=== PATIENT | male | born 1955 | race Caucasian/White ===

== ENCOUNTER 2024-01-27 06:08 | Day surgery (SDC) | payer BC, SELFPAY ==
--- NOTE | 2024-01-26 09:20 | W.SURGCON ---
Date of service: 01/27/24 Time of Service: 07:25 Assessment and Plan Assessment and plan (1) Hiatal hernia with GERD: Status: Acute Assessment and plan: 68 yo man with ongoing reflux despite ppi therapy in setting of a presumed hiatal hernia. EGD indiciated to decipher size, type and assess the physiologic behavior of his hernia. Overall plan: EGD with biopsies History of Present Illness Narrative: Patient has worsening GERD despite ppi therapy. Has known hiatal hernia. Wishes to know more and figure a definitive management strategy. BMI under 30. No significant lifestyle habits to change aggressively. PFSH All Active Problems Hiatal hernia with GERD (Acute) Hyperlipidemia (Acute) Essential hypertension (Acute) Medical History Depression Anxiety Surgical History Hx of colonoscopy Social History Smoking/Tobacco Use Status: Former Tobacco Use Quit Date: 08/12/84 Smoking risk assessment performed?: Yes Alcohol Intake: never Drug use: Never Substance use type: does not use Housing: house Current gender identity: male Do you feel safe at home: Yes Do you feel safe in your relationship?: Yes Additional Social history: unable to assess privately Exam Narrative Exam Narrative: Gen: Nontoxic, comfortable and interactive NEuro: AxOx3 PSych: GOod mood and affect, good insight and understanding Chest: Nonlabored breathing and no wheezing Heart: Regular
--- NOTE | 2024-01-26 11:26 | ENDO_ITS ---
Date of service: 01/27/24 Time of Service: 07:59 Endoscopy Report PROCEDURE DESCRIPTION: PROCEDURES PERFORMED: 1. EGD with biopsies PREOPERATIVE DIAGNOSIS: GERD with esophagitis, hiatal hernia POSTOPERATIVE DIAGNOSIS: Large (6cm) type III paraesophageal hernia, esophagitis SURGEON: Jillian Valle MD INDICATION FOR PROCEDURE: 68-year-old man has long?standing GERD despite PPI therapy and no significant or obvious risk factors for this. Reportedly has a hiatal hernia. Over the last few months his symptoms have actually become painful on a daily basis. FINDINGS: D2/D3 = normal D1/bulb = normal - no ulcers or inflammation Pylorus = normal Antrum = normal appearance, no ulcers, cold forceps biopsies were taken to rule out H. pylori routinely Body = normal appearance, biopsies taken with cold forceps technique routinely Fundus = normal, no polyps Cardia = normal Hiatus = a large type III paraesophageal hernia is present. It measures about 6 cm from the GE junction down to the hiatal opening. The hiatal defect is quite large. Distal esophagus = diffuse circumferential esophagitis for about 10 cm. I do not think it represents Simons's esophagus though it looks almost like it -in the end I favor just esophagitis visually. There are no strips/tongues present. I took cold forceps biopsies to assess histologically In multiple locations. The esophagus is not noticeably torturous and may be foreshortened. Mid esophagus = becomes distinctly normal roughly 20 cm from the incisors. Proximal esophagus/hypopharynx/vocal cords = normal SURVEILLANCE-INTERVAL/FOLLOW-UP: I recommend surgical repair. He should follow- up to discuss next steps in workup prior to having surgery performed. Specimens: Yes EBL: Minimal COMPLICATIONS: None Procedure in detail: The patient gave written consent and was in agreement with the indications, the potential risks as well as the benefits of the procedure. The patient was taken to the endoscopy suite and laid on their left side. Anesthesia was given which was tolerated well. We performed a timeout and we are in agreement I started the procedure. A well-lubricated endoscope was gently and carefully advanced down the esophagus, into the stomach the scope was and through the pylorus into the duodenum. The scope was then slowly withdrawn with the above-noted findings/interventions. The patient tolerated the procedure well and was then taken to the PACU.
--- NOTE | 2024-01-26 11:27 | W.PM.DSUDISC ---
Date of service: 01/27/24 Time of Service: 08:10 Discharge Plan Disposition Patient Disposition: Home Condition: Good Discharge Details Attending Provider: Joni Valle Primary Care Provider: Hugh Benitez Home Meds and New Rx's Prescriptions: No Action amlodipine 5 mg tablet 5 mg PO QHS atorvastatin 20 mg tablet 20 mg PO DAILY omeprazole 40 mg capsule,delayed release(DR/EC) 40 mg PO DAILY naproxen sodium [Aleve] 220 mg capsule 220 mg PO HS docusate sodium [Colace] 100 mg capsule 100 mg PO DAILY PRN Discharge Instructions Additional Instructions: FINDINGS: You do indeed have a very large hiatal hernia. This is actually called a type III paraesophageal hernia. You can tell the surgeon at [facility] that it measures about 6 cm in size. It does not appear to be twisting(volvulus) on itself nor does it seem loose enough to be twisting on itself. We should have further discussion on management strategy and workup in the office to go over the details and next steps in managing these kinds of hernias. It is my recommendation to have it surgically repaired. Please call and schedule a followup appointment at your convenience if you wish to discuss further. Stand Alone Forms: Anesthesia Discharge Inst., [place] [place] (DSU) Activity:: Activity as Tolerated Diet:: As Tolerated DS: Diagnosis Discharge Diagnosis (1) Hiatal hernia with GERD: Status: Acute
[2024-01-27 06:30] VITALS: BP 161/84; PULSE 65; RESP 18; TEMP 36.5; O2SAT 100
[2024-01-27] MEDS: Lactated Ringers 1,000 ML 80 ML IV (06:45)
--- NOTE | 2024-01-27 07:00 | ANES.PREOP_ITS ---
General Info Date of Service Date Performed: 01/27/24 Height: 5 ft 9 in Weight: 82.5 kg Body Mass Index (BMI): 26.9 Surgical Procedure: Operation Date: 01/27/24 07:35 Proposed Procedure Side Surgeon p Gastroscopy Joni Valle MD Meds Allergies and Home Medications Allergies Allergy/AdvReac Type Severity Reaction Status Date / Time No Known Allergies Allergy Verified 01/27/24 06:23 Home Medication Medication Instructions Recorded amlodipine 5 mg tablet 5 mg PO QHS 12/09/23 atorvastatin 20 mg tablet 20 mg PO DAILY 12/09/23 omeprazole 40 mg capsule,delayed 40 mg PO DAILY 12/09/23 release docusate sodium 100 mg capsule 100 mg PO DAILY PRN 01/24/24 (Colace) naproxen sodium 220 mg capsule 220 mg PO HS 01/24/24 (Aleve) Current Visit Medications: Current Medications Generic Name Dose Route Start Last Admin Trade Name Freq PRN Reason Stop Dose Admin Ringer's Solution 1,000 mls @ 80 mls/hr 01/27/24 06:00 01/27/24 06:45 IV 02/23/24 23:59 80 mls/hr INFUSION BRIAN Administration IV Miscellaneous Supplies 1 each 01/27/24 06:00 Iv Access IV 02/23/24 23:59 DIRECTED BRIAN Sodium Chloride 0 ml 01/27/24 06:00 Normal Saline Flush 10 Ml Syr IV 02/23/24 23:59 PRN PRN Sodium Chloride 0 ml 01/27/24 06:00 Normal Saline 10 Ml Vial IJ 02/23/24 23:59 DIRECTED PRN Sterile Water 0 ml 01/27/24 06:00 Water,Injection,Sterile 10 Ml Vial IJ 02/23/24 23:59 DIRECTED PRN PFSH Active Problems Active Problems: Problem Status Onset Code Hiatal hernia with GERD K44.9, K21.9 Hyperlipidemia E78.5 Essential hypertension I10 Medical History Medical History Depression Anxiety Medical History Comments:: Unknown hx, pt. states when he had a colonoscopy in [place], he was told they had to intubate him, but never knew the reason, and could never acquire any information on it. Pt. denies any hx of sleep apnea or family rx with anesthesia. Surgical History Surgical History Hx of colonoscopy Tobacco Smoking/Tobacco Use Status: Former Tobacco Use Alcohol Alcohol Intake: never Substance Use Substance use: Never Substance use type: does not use Vital Signs and Lab Results Vital Signs Most Recent Vital Signs in EMR: Most Recent Vital Signs Temp Pulse Resp BP Pulse Ox 36.5 C 65 18 161/84 H 100 01/27/24 06:30 01/27/24 06:30 01/27/24 06:30 01/27/24 06:30 01/27/24 06:30 Lab Results Blood Type / Crossmatch: 2 No Data to Display Complete Blood Count: 2 No Data to Display Complete Metabolic Panel: 2 No Data to Display Liver Function Panel: 2 No Data to Display Coagulation Panel: 2 No Data to Display Cardiac Panel: 2 No Data to Display Arterial Blood Gas: 2 No Data to Display Venous Blood Gas: 2 No Data to Display Pancreas Panel: 2 No Data to Display Thyroid Panel: 2 No Data to Display Infectious Disease: 2 No Data to Display Blood Cultures: 2 No Data to Display Toxicology Panel: 2 No Data to Display Anesthesia Assessment and Plan Anesthesia History Personal History: Other Family History: No Family History of Anesthesia Complications Exercise Tolerance Exercise Tolerance: Metabolic Equivalents>4 Pertinent Negatives Pertinent Negatives: No Symptoms of GERD Cardiac & Pulmonary Exam Cardiac Exam: Normal S1/S2 Heart Sounds Pulmonary Exam: Clear Bilateral Breath Sounds Implantable Cardiac Device Does patient have a Pacemaker or an ICD?: No Airway Exam Known Difficult Airway: No Mallampati Class: 2 Mouth Opening: Normal (> 3cm) Thyromental Distance: Greater than 3 cm Neck Range of Motion: Limited ROM (Slight limitation to posterior) Neck Circumference: Normal Teeth Condition: Normal Dentition Tooth Numberin 1. Terminous missing ASA Classification ASA Score: ASA 2 Emergency Case?: No NPO Status NPO Status: NPO Clears >2 hours, Solids >8 hours Anesthesia Plan Resuscitation Status: Full Code Anesthesia Technique: General Anesthesia Airway Planned: Natural Airway (Discussed need for ETT for last colonoscopy (10+ years ago, no records), based on current symptoms and history I believe it is reasonable to start with a natural airway. ) Monitors Used: Standard Monitors
[2024-01-27 07:24] VITALS: BMI 26.9
--- NOTE | 2024-01-27 07:44 | ESO_PTH ---
PATIENT: Colt Chan LOC: [facility] U#:[id number] AGE/SX: 68/M ROOM: RE01/27/[address]: Joni Valle : 1955 BED: DIS: 01/27/2024 SPEC #: [id number] RECD: 01/27/24 12:41 STATUS: TAMIR SEN #: [id number] HILARIA: 01/27/24 07:[address]: Joni Valle DEPT: Surgical Specimen RECD BY: Bianka Alex ENTERED: 01/27/24 12:42 SP TYPE: Nanci MOJICA DR: Hugh Benitez Tissues: 1 - STOMACH BIOPSY 2 - STOMACH BIOPSY 3 - ESOPHAGUS BIOPSY 4 - ESOPHAGUS BIOPSY 5 - ESOPHAGUS BIOPSY Procedures: GROSS AND MICRO LEVEL 4 Comments: [id number]
[2024-01-27 08:00] VITALS: BP 135/74; PULSE 78; RESP 16; TEMP 36; O2SAT 98
--- NOTE | 2024-01-27 08:17 | W.ANESPOSTOP ---
Postoperative Evaluation Date, Time and Location Date Performed: 01/27/24 Time Performed: 08:05 Patient Location: Day Surgery Unit Vital Signs Most Recent Imported Vital Signs: Most Recent Vital Signs Temp Pulse Resp BP Pulse Ox 36 C L 78 16 135/74 98 01/27/24 08:00 01/27/24 08:00 01/27/24 08:00 01/27/24 08:00 01/27/24 08:00 Pain Score Most Recent Pain Score: Most Recent Pain Score Pain Level 0 01/27/24 08:00 Assessment Mental Status: Arousable with meaningful communication Airway and Respiratory Function: Patent airway with normal (patient baseline) respiratory exam Cardiovascular Function: Hemodynamically Stable Hydration Status: Adequately Hydrated Nausea & Vomiting: No Nausea or Vomiting Pain: Pt. Denies Any Pain Peripheral Nerve Block: Patient did not receive a nerve block
[2024-01-27 08:35] VITALS: BP 142/76; PULSE 62; RESP 16; TEMP 36.1; O2SAT 98
== END 2024-01-27 08:50 | disposition home or self-care (01) ==
PROVIDERS: PCP Student in an Organized Health Care Education/Training Program; Visit Provider Student in an Organized Health Care Education/Training Program
PROC: 0DJ68ZZ Inspection of Stomach, Via Natural or Artificial Opening Endoscopic (ICD-10-PCS; CPT 43235; principal; 2024-01-27 07:30)
DX: K44.9 Diaphragmatic hernia without obstruction or gangrene (principal); K21.9 Gastro-esophageal reflux disease without esophagitis; I10 Essential (primary) hypertension; K20.90 Esophagitis, unspecified without bleeding; K31.A0 Gastric intestinal metaplasia, unspecified
CPT/HCPCS: 43239; 00123; 88305; J2001; J2704

== ENCOUNTER → 2024-02-19 00:35 | Outpatient (CLI) | payer BC, SELFPAY ==
--- NOTE | 2024-02-19 07:00 | DI.RAD_ITS ---
Exam(s) RF BARIUM SWALLOW EXAM: RF BARIUM SWALLOW CLINICAL HISTORY: assess hernia physiology and shape,PARAESOPHAGEAL HERNIA,K44.9,K21.9 TECHNIQUE: 2D and realtime digital imaging was performed. CONTRAST MATERIAL: Thick and thin barium and barium tablet were administered. COMPARISON: No exams were available for comparison FINDINGS: The PA and lateral chest films show normal heart size and clear lung griffin. The lateral cd storage and materials make up helper view of the neck is unremarkable shows degenerative changes in the cervical spine. Esophagus: The patient swallowed barium without difficulty. Noevidence for mucosal erosions. Nofol d thickening. No mass is visible. Nostricture. Barium tablet passed into the stomach without delay. Motility: There is a normal primary stripping wave. No tertiary contractions were noted. There is a moderate-sized hiatal hernia, with the fundus of the stomach projecting above the diaphrag m.. Nogastroesophageal reflux was observed during the exam. Normal gastric emptying. The duodenum appea rs normal. IMPRESSION: Moderate-sized hiatal hernia. RADIATION DOSE DELIVERED: candis Freeman=12.6 mGy
[2024-02-19] MEDS: Barium Sulfate 98% W/W 140 ML BTL PO (09:45)
[2024-02-19] MEDS: Barium Sulfate 60% W/V 355 ML BTL PO (09:46)
[2024-02-19] MEDS: Barium Sulfate 700 MG TAB PO (09:47)
[2024-02-19] MEDS: Simethicone/Sod Bicarb/Cit Ac, 4 gram PACKET 1 PACKET PO (09:47)
== END ==
PROVIDERS: PCP Student in an Organized Health Care Education/Training Program; Visit Provider Student in an Organized Health Care Education/Training Program
DX: K44.9 Diaphragmatic hernia without obstruction or gangrene (principal); K21.9 Gastro-esophageal reflux disease without esophagitis
CPT/HCPCS: 74221; J3490

== ENCOUNTER → 2024-02-27 01:49 | Outpatient (CLI) | payer BC, SELFPAY ==
[2024-02-27] MEDS: Barium Sulfate 2% W/V-Berry Smoothie 450 ML BTL PO (07:21)
[2024-02-27 07:35] LABS: CREATININE 0.9 mg/dL (0.70-1.30); Estimated GFR 93.03 (mL/min/1.73m2)
[2024-02-27] MEDS: Omnipaque 350 MG/ML 100 ML BTL IJ (08:42)
[2024-02-27] MEDS: Normal Saline - Diluent 50 ML VIAL IJ (08:43)
--- NOTE | 2024-02-27 08:45 | DI.CT_ITS ---
Exam(s) CT CHEST/ABD W EXAM: CT CHEST/ABD W CLINICAL HISTORY: preop,paraesophageal hernia with ge reflux,k44.9. TECHNIQUE: Imaging Protocol: Axial computed tomography images with coronal and sagittal reformatted images were created and reviewed CONTRAST MATERIAL: Intravenous: Omnipaque 350 Contrast volume:100 ml Oral: Yes. Oral contrast was also administered for bowel opacification. COMPARISON: CR,RF RF BARIUM SWALLOW from 02/19/2024 FINDINGS: CHEST: LUNGS: No infiltrates, concerning pulmonary nodules, nor pleural effusions. No significant focal fin dings in the trachea and mainstem bronchi and there is no bronchiectasis.. MEDIASTINUM: There is no hilar nor mediastinal adenopathy. Visualized thyroid unremarkable.Prominent hiatal hernia evident which appears para esophageal. The entire gastric fundus is in the chest. Her emerson size is 7 cm wide by 6 cm AP by 9 cm craniocaudal. The upper esophagus is not dilated. CARDIAC: Heart size is normal. There is no pericardial effusion.Caliber of the thoracic aorta is wit hin normal limits. No evidence of dissection OSSEOUS: No significant osseous lesions.. ABDOMEN: No evidence of small-bowel obstruction. The oral contrast has progressed into the large bowel by the time of image acquisition. LIVER: There are no focal hepatic lesions nor dilatation of intrahepatic ducts. GALLBLADDER/BILIARY: No obvious gallbladder pathology. CBD is not dilated. PANCREAS: No evidence of pancreatic mass nor dilatation of the pancreatic duct. SPLEEN: Spleen is not enlarged. There are no intrasplenic lesions. Splenic and portal veins are barr nt. ADRENALS: There are no significant adrenal masses. KIDNEYS: No calculi nor hydronephrosis. No solid renal masses. No cysts evident. ABDOMINAL AORTA: Calcified but not enlarged. LYMPH NODES: There is no retroperitoneal nor paraaortic adenopathy. ABDOMINAL WALL: No evidence of significant anterior abdominal wall hernia in the field of view. GI: There is no evidence of bowel obstruction within the field of view. OSSEOUS: No significant osseous lesions. No fractures. IMPRESSION: 1. Prominent hiatal hernia measuring approximately 7 x 6 x 9 cm. 2. No significant focal pulmonary findings nor pleural effusions. 3. Other findings as above. 4. RADIATION DOSE DELIVERED: Total DLP DATA REPOSITORY: All CT scans at this facility are submitted to the National Radiology Data Registry (NRDR) Dose Index Registry (DIR) with the [employer] (ACR). RADIATION OPTIMIZATION: All CT scans at this facility use at least one of these dose optimization te chniques: automated exposure control; mA and/or kV adjustment per patient size (includes targeted exa ms where dose is matched to clinical indication); or iterative reconstruction.
== END ==
PROVIDERS: PCP Student in an Organized Health Care Education/Training Program; Visit Provider Student in an Organized Health Care Education/Training Program
DX: K44.9 Diaphragmatic hernia without obstruction or gangrene (principal); K21.9 Gastro-esophageal reflux disease without esophagitis; Z01.812 Encounter for preprocedural laboratory examination
CPT/HCPCS: 71260; 74160; 82565; J3490

== ENCOUNTER 2024-05-05 13:22 | Observation (INO) | payer BC, SELFPAY ==
[2024-05-05] VITALS (49 sets, daily range): BP systolic 110–166; BP diastolic 52–109; PULSE 55–82; RESP 11–33; TEMP 36.1–36.8; O2SAT 94–100; BMI 27.7
[2024-05-05] MEDS: Acetaminophen 500 MG TAB 1000 MG PO (06:45)
[2024-05-05] MEDS: Gabapentin 300 MG CAP PO (06:45)
[2024-05-05] MEDS: Celecoxib 200 MG CAP PO (06:45)
[2024-05-05] MEDS: Heparin 5,000 UNITS/ML VIAL 5000 UNITS SC ×2 (06:48→18:00)
--- NOTE | 2024-05-05 07:07 | W.ANESPRE ---
General Info Date of Service Date Performed: 05/05/24 Height: 5 ft 6 in Weight: 77.9 kg Body Mass Index (BMI): 27.7 Surgical Procedure: Operation Date: 05/05/24 07:30 Proposed Procedure Side Surgeon p Hernia Paraesophageal Laparoscopic Joni Valle MD Actual Procedure Side Surgeon p Hernia Paraesophageal Laparoscopic Joni Valle MD Pre-Op Diagnosis Post-Op Diagnosis hiatal hernia with GERD Meds Allergies and Home Medications Allergies Allergy/AdvReac Type Severity Reaction Status Date / Time No Known Allergies Allergy Verified 05/05/24 06:50 Home Medication ?Medication ?Instructions ?Recorded amlodipine 5 mg tablet 5 mg PO QHS 12/09/23 atorvastatin 20 mg tablet 20 mg PO DAILY 12/09/23 omeprazole 40 mg capsule,delayed 40 mg PO DAILY 12/09/23 release docusate sodium 100 mg capsule 100 mg PO DAILY PRN 01/24/24 (Colace) naproxen sodium 220 mg capsule 220 mg PO HS 01/24/24 (Aleve) [id number] 250 1 tab PO ONCE 04/08/24 mg-250 mg-65 mg tablet (Excedrin Extra Strength) Current Visit Medications: Current Medications Generic Name Dose Route Start Last Admin Trade Name Freq PRN Reason Stop Dose Admin Droperidol 0.625 mg 05/05/24 07:04 Droperidol 5 Mg/2 Ml Vial IVP 06/04/24 07:03 DIRECTED PRN Nausea Ephedrine Sulfate 0 mg 05/05/24 07:04 Ephedrine 25 Mg/5 Ml Syringe IVP 06/04/24 07:03 DIRECTED PRN Fentanyl 0 mcg 05/05/24 07:04 Fentanyl 100 Mcg/2 Ml Vial IVP 06/04/24 07:03 DIRECTED PRN Heparin Sodium (Porcine) 5,000 units 05/05/24 06:00 05/05/24 06:48 Heparin 5,000 Units/Ml Vial SC 05/05/24 23:59 5,000 units PREOP BRIAN Administration Hydromorphone HCl 0 mg 05/05/24 07:04 Hydromorphone 2 Mg/Ml Syr IVP 06/04/24 07:03 DIRECTED PRN Ringer's Solution 1,000 mls @ 80 mls/hr 05/05/24 06:00 IV 06/03/24 23:59 INFUSION BRIAN IV Miscellaneous Supplies 1 each 05/05/24 06:00 Iv Access IV 06/03/24 23:59 DIRECTED BRIAN Naloxone HCl 0 mg 05/05/24 07:04 Naloxone 0.4 Mg/Ml Vial IVP 06/04/24 07:03 PRN PRN Sodium Chloride 0 ml 05/05/24 06:00 Normal Saline Flush 10 Ml Syr IV 06/03/24 23:59 PRN PRN Sodium Chloride 0 ml 05/05/24 06:00 Normal Saline 10 Ml Vial IJ 06/03/24 23:59 DIRECTED PRN Sterile Water 0 ml 05/05/24 06:00 Water,Injection,Sterile 10 Ml Vial IJ 06/03/24 23:59 DIRECTED PRN PFSH Active Problems Active Problems: Problem Status Onset Code Paraesophageal hernia with gastroesophageal reflux Acute K44.9, K21.9 Hiatal hernia with GERD Acute K44.9, K21.9 Hyperlipidemia Acute E78.5 Essential hypertension Acute I10 Medical History Medical History Collapsed lung Depression Anxiety Medical History Comments:: Unknown hx, pt. states when he had a colonoscopy in [place], he was told they had to intubate him, but never knew the reason, and could never acquire any information on it. Pt. denies any hx of sleep apnea or family rx with anesthesia. Surgical History Surgical History History of esophagogastroduodenoscopy (~01/2024) Hx of colonoscopy Tobacco Smoking/Tobacco Use Status: Former Tobacco Use Alcohol Alcohol Intake: never Substance Use Substance use: Never Substance use type: does not use Vital Signs and Lab Results Vital Signs Most Recent Vital Signs in EMR: Most Recent Vital Signs Temp Pulse Resp BP Pulse Ox 36.2 C L 62 16 166/74 H 98 05/05/24 06:19 05/05/24 06:19 05/05/24 06:19 05/05/24 06:19 05/05/24 06:19 Lab Results Blood Type / Crossmatch: No Data to Display Complete Blood Count: No Data to Display Complete Metabolic Panel: No Data to Display Liver Function Panel: No Data to Display Coagulation Panel: No Data to Display Cardiac Panel: No Data to Display Arterial Blood Gas: No Data to Display Venous Blood Gas: No Data to Display Pancreas Panel: No Data to Display Thyroid Panel: No Data to Display Infectious Disease: No Data to Display Blood Cultures: No Data to Display Toxicology Panel: No Data to Display Anesthesia Assessment and Plan Anesthesia History Personal History: Delayed Emergence and Other Family History: No Family History of Anesthesia Complications Exercise Tolerance Exercise Tolerance: Metabolic Equivalents>4 Pertinent Negatives Pertinent Negatives: No Symptoms of GERD (Hx of GERD, denies active symptoms, reports well control with diet and occasional PRN omeprazole ), No Major Cardiovascular Symptoms or Complaints, No Major Pulmonary Symptoms or Complaints and No History of CVA/TIA Cardiac & Pulmonary Exam Cardiac Exam: Normal S1/S2 Heart Sounds Pulmonary Exam: Clear Bilateral Breath Sounds Implantable Cardiac Device Does patient have a Pacemaker or an ICD?: No Airway Exam Known Difficult Airway: No Mallampati Class: 2 Mouth Opening: Normal (> 3cm) Thyromental Distance: Greater than 3 cm Neck Range of Motion: Limited ROM (Slight limitation to posterior) Neck Circumference: Normal Teeth Condition: Normal Dentition ASA Classification ASA Score: ASA 2 Emergency Case?: No NPO Status NPO Status: NPO Clears >2 hours, Solids >8 hours Anesthesia Plan Resuscitation Status: Full Code Anesthesia Technique: General Anesthesia Airway Planned: Endotracheal Tube Pain Management: Surgeon and patient request nerve block Monitors Used: Standard Monitors and SedLine
[2024-05-05] MEDS: Lactated Ringers 1,000 ML 80 ML IV ×2 (07:21→13:10)
--- NOTE | 2024-05-05 08:48 | W.ANESNERVE ---
Nerve Block Single Injection Procedure Date and Time Date Performed: 05/05/24 Procedure Start: 07:13 Location Where Procedure Performed Procedure Location: Day Surgery Unit Reason Performed: Postoperative Analgesia Requesting Provider: Joni Valle Timeout Performed Timeout Performed: Yes Monitoring Used ECG, Blood Pressure, SpO2 and See EMR for corresponding vital signs Sterility Sterility: Hand Hygiene, Surgical Cap, Surgical Mask, Sterile Gloves and Chlorhexidine Sedation Given During Procedure Sedation Given (Indicate Dose Given): Versed IV Dose:: 2mg Patient Mental Status Patient Mental Status: Sedate with meaningful communication Nerve Block 1st Nerve Block: Laterality: Bilateral Block Type: Erector Spinae (Upper) Ultrasound Image Saved?: Yes Needle / Catheter Used: 100mm SonoPlex II Local Anesthetic Bolus (Indicate Dose Given): Lidocaine used for local infiltration of skin, Injected in 3-5ml increments after negative blood aspiration, Exparel Dose:: 5ml and Bupivacaine 0.25% with Epinephrine (1:200,000) Dose:: 25ml Additives (Indicate Dose Given): None Ultrasound: Sterile probe cover and gel used Nerve Stimulator: Not Used Paresthesia: None Procedure Tolerated: No Complications and Patient tolerated well Procedure Outcome: Successful Performed By: Julius Seay Supervised By: Amador Saavedra
--- NOTE | 2024-05-05 12:03 | ROE_ITS ---
Date of service: 05/05/24 Time of Service: 12:03 Operative Note Operative Note Refer to Anesthesia Record Procedure Description: Procedure Description: Procedures: 1. Laparoscopic paraesophageal hernia repair with Phasix ST mesh 2. Laparoscopic Yannick fundoplication Preoperative Diagnosis: symptomatic type 3 paraesophageal hernia Postoperative Diagnosis: Same Surgeon: Jillian Valle Assist: Dari Anesthesia: General Anesthesiologist: Chance Indication: Large, symptomatic type III paraesophageal hernia. Normal manometry. Findings: A large-size type III paraesophageal hernia was present and reduced. Primary suture repair performed at the екатерина anterior and posterior and then buttressed with a Phasix ST mesh. A 360 degree Yannick fundoplication was performed over a 56 welsh bougie. Complications: None Estimated Blood Loss: Minimal Specimens removed: None Grafts or implants: Phasix ST mesh Procedure in detail: Written consent was obtained from the patient who was in agreement the risks, the benefits and indications for the procedure. The patient was taken to the operating suite and laid supine on the operating table with arms outstretched. General anesthesia was administered which was tolerated very well. Anesthesia had performed an ultrasound?guided local block(see their procedure note for details) We placed the patient in lithotomy. Next we prepped and draped the abdomen in sterile fashion. A timeout was performed. When we were all in agreement we began the procedure. Just to the left of the bellybutton a small stab incision was made and a 5 mm Optiview trocar was used to enter into the abdomen under direct visualization. Four-quadrant diagnostic laparoscopy was performed and was grossly within normal limits. The liver was inspected and did not appear cirrhotic. 3 more trochars were placed across the abdomen under visualization. The 12 mm working port was placed in the mid clavicular line on the left side. A Ashvin liver retractor was used to retract the liver anteriorly and was placed in the epigastric location through a 5 mm defect. The patient was placed in steep reverse Trendelenburg and we had good visualization of the hiatus. The entire fundus was herniated within the chest. This was reduced laparoscopically. I identified the left екатерина of the diaphragm and incised the peritoneum overlying it from posterior circumferentially up to the anterior portion of the esophagus. The anterior(left) vagus nerve was visualized against the esophagus. I then turned my attention to opening pars flaccida and took down the attachments leading up to the right екатерина which was easily identified and again peritoneum was opened over top of this. I then ensured that all the peritoneum edges on the posterior aspect were divided(no hernia sac remaining). The posterio r(right) vagus nerve was also easily identified and was bluntly and gently swept away from the dissection planes by keeping it close to the esophagus. I was able to circumferentially clear the esophagus at the level of the hiatus and passed a [place] drain around this for retraction leading into the mediastinal dissection. Next, a combination of blunt dissection as well as dissection with the LigaSure was performed to mobilize the esophagus within the mediastinum taking care to dissect very high into the mediastinum to facilitate excellent mobilization. This was achieved and we had complete mobilization without any significant difficulty. Satisfied with circumferential dissection within the mediastinum and the mobilization of the esophagus and that there was no tension, I verified that I had about 3 cm of esophagus intra-abdominal. Further, this stayed intra- abdominal without any retraction or tension. At this point I closed the left and right crura primarily, posteriorly using an Endo Stitch with interrupted sutures. This facilitated a nice closure that did not have any tension and I ensured that it was not too tight around the esophagus. I also stitched it anteriorly. Next I fixated the Phasix ST mesh (that I had pre-cut to size on the back table) in place with a single suture on each side of it through the left and right crura individually and a stitch through the crural closure in the center. At this point anesthesia advanced a 56 Nepali bougie gently down the esophagus while we watched with the laparoscope. The crural closure was not too tight. I divided some of the short gastrics in order to facilitate getting the fundus behind the esophagus/bougie loosely and without tension. Following this I was able to grab the fundus of the stomach and bring it around behind the esophagus without any tension or difficulty. I had excellent mobilization and I was able to get the fundus completely wrapped around the esophagus and GE junction over top of the 56 Nepali bougie and no tension was noted. I then used 2-0 silk sutures and sutured about 2cm of fundus to fundus, thus completing the 360 degree wrap around the esophagus. I ensured that it was l oose and floppy and not tight. I placed the superior two stitches partial- thickness through the esophagus to prevent the wrap from moving up or down at the GE junction. Hemostasis was excellent, the wrap lay very nicely and had no tension anywhere. All the needles were removed. The Ashvin retractor was removed. Hemostasis was again verified to be excellent. The 12 mm port site was closed with 0 Vicryl using a Ernesto Sarah. All trochars were removed under visualization and the pneumoperitoneum was evacuated. I closed the skin with running Monocryl and placed skin glue over top of the wounds. The sponge, instrument and sharps counts were correct x3 at the end of the procedure. The patient tolerated the procedure well and was taken to the PACU in hemodynamically stable condition.
[2024-05-05] MEDS: ACETAMINOPHEN 1,000 MG/100 ML BTL 400 MG IVPB ×2 (13:29→20:19)
[2024-05-05] MEDS: Lactated Ringers 1,000 ML 75 ML IV (14:38)
--- NOTE | 2024-05-05 15:05 | ANES.POST_ITS ---
Postoperative Evaluation Date, Time and Location Date Performed: 05/05/24 Time Performed: 14:00 Patient Location: PACU Vital Signs Most Recent Imported Vital Signs: Most Recent Vital Signs Temp Pulse Resp BP Pulse Ox 36.3 C L 72 18 156/92 H 99 05/05/24 14:51 05/05/24 14:51 05/05/24 14:51 05/05/24 14:51 05/05/24 14:51 Pain Score Most Recent Pain Score: Most Recent Pain Score Pain Level [Left Neck] 8 05/05/24 14:51 Pain Level [Left Shoulder] 8 05/05/24 14:51 Pain Level [Abdomen] 5 05/05/24 14:51 Pain Level 7 05/05/24 14:51 Assessment Mental Status: Arousable with meaningful communication Airway and Respiratory Function: Patent airway with normal (patient baseline) respiratory exam Cardiovascular Function: Hemodynamically Stable Hydration Status: Adequately Hydrated Nausea & Vomiting: No Nausea or Vomiting Pain: Pain is tolerable per patient Peripheral Nerve Block: Regional nerve block not resolved at time of post operat zach discharge Teaching Patient Teaching: Discussed Safe Use of Pain Medication Given Recent Anesthesia
[2024-05-06] MEDS: ACETAMINOPHEN 1,000 MG/100 ML BTL 400 MG IVPB ×2 (01:16→07:43)
[2024-05-06] MEDS: Heparin 5,000 UNITS/ML VIAL 5000 UNITS SC ×2 (01:16→08:47)
[2024-05-06] MEDS: Lactated Ringers 1,000 ML 75 ML IV (02:18)
[2024-05-06 05:19] VITALS: BP 160/69; PULSE 83; RESP 18; TEMP 36.7; O2SAT 99
[2024-05-06] MEDS: Ondansetron 4 MG/2 ML VIAL IVP (05:53)
[2024-05-06] MEDS: Normal Saline Flush 10 ML SYR IV (07:44)
[2024-05-06 08:11] VITALS: BP 159/71; PULSE 75; RESP 20; TEMP 36.9; O2SAT 96
--- NOTE | 2024-05-06 09:21 | DSE_ITS ---
Date of service: 05/06/24 Time of Service: 09:21 Discharge Plan Disposition Patient Disposition: Home Condition: Good Discharge Details Reason For Visit: Paraesophageal Hernia Admit Date/Time: 05/05/24 13:22 Admit Provider: Joni Valle Attending Provider: Joni Valle [facility]: 68-year-old man presented for an elective laparoscopic paraesophageal hernia repair. His procedure went well. He was kept overnight for observation routinely. On the morning of postoperative day 1 he was tolerating a liquid diet without any dysphagia. He was not having any other issues and was ambulatory and ready for discharge home. Home Meds and New Rx's Prescriptions: No Action Excedrin Extra Strength 250-250-65 mg tablet 1 tab PO ONCE amlodipine 5 mg tablet 5 mg PO QHS atorvastatin 20 mg tablet 20 mg PO DAILY omeprazole 40 mg capsule,delayed release(DR/EC) 40 mg PO DAILY naproxen sodium [Aleve] 220 mg capsule 220 mg PO HS docusate sodium [Colace] 100 mg capsule 100 mg PO DAILY PRN Discharge Instructions Additional Instructions: INSTRUCTIONS: Incisions: Keep clean and dry but they do not need to be covered. It is okay to shower but no tub bathing for 1 week. You can peel the glue off after 1 week. Activity: As tolerated. Light duty without any heavy lifting/pulling or pushing for 6-8 weeks. Diet: You can eat anything you want but it must be pur?ed/liquid form for 2 weeks. 2 weeks from discharge date, you can start slowly eating regular food. Begin with very small bites and advance as tolerated. Medications: Resume all of your usual/regular home medications. Heartburn medicine should no longer be needed. Follow-up: If you are having any issues or concerns call the surgery office immediately. Otherwise, follow-up in about 4-6 weeks. Pain control: Take Tylenol, 1000 mg, every 6 hours on a schedule for the next 3 days. You can use ibuprofen in addition to Tylenol. Overall: No symptoms should not be worsening. If you have any difficulty breathing or you have return of symptoms of brought you to the hospital or your pain is otherwise worsening each day and you should call the doctor's office or come into the hospital to be checked out. Activity:: Activity as Tolerated Equipment/Supplies:: No Equipment Needed Diet:: see above DS: Summary Time Spent with Patient providing and/or coordinating discharge services: Less than 30 minutes Status at Discharge Functional status at discharge: independent ambulation Overall status at discharge: patient is back to baseline Mental Status: mental status grossly normal Speech and Movement: speech and movement normal Mood: congruent mood Affect: normal affect Quality:SDOH Health Related Social Needs: No Data to Display Exam Narrative Exam Narrative: Gen: Non-toxic, comfortable and interactive Neuro: Alert and oriented x3 Psych: Good mood and affect. Good insight and understanding into condition. Chest: Non-labored breathing, no wheezing, no visible shortness of breath. Heart: Regular Abdomen: Soft, nondistended, minimally tender around incision sites only as expected. Psych Mental Status: mental status grossly normal Speech and Movement: speech and movement normal Mood: congruent mood Affect: normal affect DS: Data Vitals/I&O Vitals and I&O: Vital Signs Temperature 98.4 F 05/06/24 08:11 Temperature Source Tympanic 05/06/24 08:11 Pulse 75 05/06/24 08:11 Pulse Rhythm Regular 05/05/24 14:02 Pulse 63 05/05/24 13:41 Respiratory Rate 20 05/06/24 08:11 Respiratory Effort Normal, Non-Labored 05/05/24 14:02 Respiratory Depth Normal 05/05/24 14:02 Respiratory Pattern Normal 05/05/24 14:02 Blood Pressure 159/71 H 05/06/24 08:11 Blood Pressure Mean 93 05/05/24 13:41 Blood Pressure Position Sitting 05/05/24 07:35 Pulse Oximetry 96 05/06/24 08:11 Respiratory End-tidal CO2 36 05/05/24 13:06 Oxygen Delivery Method Room Air 05/06/24 08:11 Oxygen Flow Rate 0 05/06/24 08:11 Pain Level 8 05/06/24 08:11 Comment RN Notified 05/06/24 05:19 Intake & Output 05/05/24 05/05/24 05/06/24 11:59 23:59 11:59 Intake Total 800 / 1348.333 548.333 / 1348.333 975 / 975 Balance 800 / 1348.333 548.333 / 1348.333 975 / 975 Weight 171 lb 11.841 oz 171 lb 11.841 oz Intake: IV 800 / 1348.333 548.333 / 1348.333 975 / 975 Other: Urine Color Yellow Yellow Urine Appearance Clear Urine Odor Normal Comment independent in toilet Emesis Description None Voiding Methods Toilet Toilet PFSH All Active Problems Paraesophageal hernia with gastroesophageal reflux (Acute) Hiatal hernia with GERD (Acute) Hyperlipidemia (Acute) Essential hypertension (Acute) Medical History Collapsed lung Depression Anxiety Surgical History (Updated 05/05/24 @ 13:09 by Consuelo Valentine) S/P repair of paraesophageal hernia (~05/05/24) History of esophagogastroduodenoscopy (~01/2024) Hx of colonoscopy Social History Smoking/Tobacco Use Status: Former Tobacco Use Quit Date: 08/12/84 Smoking risk assessment performed?: Yes Alcohol Intake: never Drug use: Never Substance use type: does not use Housing: house Current gender identity: male Do you feel safe at home: Yes Do you feel safe in your relationship?: Yes Additional Social history: [facility] Time Spent with Patient Time Spent with Patient: <45 minutes Time was spent: preparing to see the patient(eg.review tests), obtaining and/or reviewing separately otained hiistory, ordering medications,tests, procedures, indepentently interpreting results, counseling the patient and care coordination
--- NOTE | 2024-05-06 11:27 | PDOC.CMPRO ---
Date of service: 05/06/24 Time of Service: 11:27 Care Management Progress Note Progress Note Text Progress Note Text: Jerrod was admitted on 05/05/24 for repair of a paraesophageal hernia. The procedure went well and Jerrod had an uneventful recovery. He complained of some nausea this morning and refused his breakfast but declined medication for same. Jerrod was discharged home with his and will follow up with his surgeon. SDOH(Care Management) Screening Will the Patient Participate in the Screening?: Yes Do you worry about having a steady place to live?: no Problems where you live: no known problems In the past 12 months, have you had to go without electric, gas, oil or water in your home?: no Have you or anyone in your house had to go without enough food to eat?: no Has lack of transportation kept you from medical appointments or from doing things needed for daily living?: no Has anyone in your support network made you feel unsafe for any reason?: no
--- NOTE | 2024-05-06 12:54 | NUR.NOTE ---
Nursing Note: Pt reported nausea and vomiting, but upon further questioning, he has been spitting up clear secretions, no witnessed emesis. He is tolerating fluids at the time of assessment and states that he feels fine.
== END 2024-05-06 10:13 | disposition home or self-care (01) ==
LOC: MS 13:59
PROVIDERS: Admitting Provider Student in an Organized Health Care Education/Training Program; PCP Student in an Organized Health Care Education/Training Program; Visit Provider Student in an Organized Health Care Education/Training Program
PROC: 0BUT4JZ Supplement Diaphragm with Synthetic Substitute, Percutaneous Endoscopic Approach (ICD-10-PCS; CPT 43282; principal; 2024-05-05 07:30)
DX: K44.9 Diaphragmatic hernia without obstruction or gangrene (principal); Z79.899 Other long term (current) drug therapy; E78.5 Hyperlipidemia, unspecified; K21.9 Gastro-esophageal reflux disease without esophagitis; I10 Essential (primary) hypertension
CPT/HCPCS: 43282; 00123; 76942; 96365; 96366; 96372; 96375; 96376; C1781; C9290; G0378; J0131; J1100; J1644; J2001; J2250; J2371; J2405; J2704; J3475

== ENCOUNTER 2024-06-02 19:56 | Outpatient (REF) | payer BC, SELFPAY ==
[2024-06-02 16:41] LABS: ALT 16 U/L (16-63); AST 32 U/L (15-37); Albumin 3.8 g/dL (3.4-5.0); Alkaline Phosphatase 73 U/L (46-116); Anion Gap 7.3 mmol/L (3-11); BUN 9 mg/dL (7-18); Bilirubin, Total 0.46 mg/dL (0.2-1.0); CO2 29.7 mmol/L (21.0-32.0); CREATININE 0.9 mg/dL (0.70-1.30); Calcium 9.2 mg/dL (8.5-10.1); Calculated LDL 105 mg/dL (<100); Chloride 107 mmol/L (98-107); Cholesterol 193 mg/dL (<200); Estimated GFR 92.45 (mL/min/1.73m2); Glucose 89 mg/dL (74-106); HDL Cholesterol 71 mg/dL (40-60); Potassium 4.6 mmol/L (3.5-5.1); Sodium 144 mmol/L (136-145); TSH 1.39 uIU/mL (0.36-3.74); Total Protein 6.6 g/dL (6.4-8.2); Triglyceride 85 mg/dL (<150)
[2024-06-02 16:59] LABS: FREE T4 1.23 ng/dL (0.76-1.46)
== END 2024-06-02 19:57 | disposition home or self-care (01) ==
LOC: NCHCN 19:56
PROVIDERS: PCP Student in an Organized Health Care Education/Training Program; Visit Provider Student in an Organized Health Care Education/Training Program
DX: Z13.228 Encounter for screening for other metabolic disorders (principal); E78.5 Hyperlipidemia, unspecified
CPT/HCPCS: 80053; 80061; 84439; 84443

== ENCOUNTER 2024-12-10 10:31 | Outpatient (REF) | payer MEDICARE, SELFPAY ==
[2024-12-10 17:14] LABS: Abs Immature Grans 0.01 10^3/uL (0.0-0.06); Absolute Basophil Count 0.07 10^3/uL (0.0-0.2); Absolute Eosinophil Count 0.11 10^3/uL (0.0-0.7); Absolute Lymphocyte Count 1.61 10^3/uL (1.2-3.4); Absolute Monocyte Count 0.47 10^3/uL (0.1-0.8); Absolute Neutrophil Count 3.82 10^3/uL (1.2-6.7); Basophils % 1.1 %; Eosinophils % 1.8 %; HCT 41.2 % (40.0-50.0); HGB 13.6 g/dL (13.5-17.5); Immature Grans % 0.2 %; Lymphocytes % 26.4 %; MCH 31.1 pg (27.0-33.0); MCV 94 fL (80-95); MPV 11.2 fL (8.0-11.0); Monocytes % 7.7 %; Neutrophils % 62.8 %; Platelet Count 290 10^3/uL (130-400); RBC 4.37 10^6/uL (4.36-5.78); RDW 14.1 % (11.8-14.1); RDW-SD 49.2 fL; WBC 6.09 10^3/uL (4.4-10.8)
[2024-12-10 17:34] LABS: ALT 23 U/L (16-63); AST 30 U/L (15-37); Albumin 3.8 g/dL (3.4-5.0); Alkaline Phosphatase 67 U/L (46-116); Anion Gap 4.8 mmol/L (3-11); BUN 18 mg/dL (7-18); Bilirubin, Total 0.6 mg/dL (0.2-1.0); CO2 31.2 mmol/L (21.0-32.0); CREATININE 0.9 mg/dL (0.70-1.30); Calcium 9.1 mg/dL (8.5-10.1); Chloride 109 mmol/L (98-107); Estimated GFR 92.45 (mL/min/1.73m2); Glucose 95 mg/dL (74-106); Potassium 4.6 mmol/L (3.5-5.1); Sodium 145 mmol/L (136-145); TSH (W/Ref FT4) 1.36 uIU/mL (0.36-3.74); Total Protein 6.7 g/dL (6.4-8.2)
[2024-12-11 18:57] LABS: HIV-1/2 Ag & Ab Screen Negative (Negative)
[2024-12-14 10:57] LABS: Lyme Ab w Rflx to Lyme Confirm Negative (Negative)
[2024-12-14 11:09] LABS: Syphilis Serology (RPR) Negative (Negative)
[2024-12-14 20:35] LABS: Anaplasma phagocytophilum Negative (Negative); B. miyamotoi PCR Negative (Negative); Babesia divergens/MO-1 Negative (Negative); Babesia duncani Negative (Negative); Babesia microti Negative (Negative); Ehrlichia chaffeensis Negative (Negative); Ehrlichia ewingii/canis Negative (Negative); Ehrlichia muris eauclairensis Negative (Negative)
== END 2024-12-10 10:32 | disposition home or self-care (01) ==
LOC: NCHCN 10:31
PROVIDERS: PCP Student in an Organized Health Care Education/Training Program; Visit Provider Student in an Organized Health Care Education/Training Program
DX: R41.89 Other symptoms and signs involving cognitive functions and awareness (principal); Z11.4 Encounter for screening for human immunodeficiency virus [HIV]
CPT/HCPCS: 80053; 87389; 87798; 84443; 85025; 86592; 86618

== ENCOUNTER 2025-03-31 16:53 | Outpatient (CLI) | payer MEDICARE, SELFPAY ==
--- NOTE | 2025-03-31 | DI.RAD_ITS ---
Exam(s) XR SHOULDER RT COMPLETE 2+V EXAM: XR SHOULDER RT COMPLETE 2+V CLINICAL HISTORY: PAIN, JOINT, SHOULDER, RIGHT M25.511. TECHNIQUE: 2D digital imaging was performed. Five views. COMPARISON: No exams were available for comparison FINDINGS: BONES: No acute fracture is present. No bony destructive lesion is seen. Prior distal clavicular resection. Some spurring at the undersurface of the acromion and greater tuberosity. Small degenerative cysts in the humeral head. JOINTS: No dislocation present. Mild narrowing of the glenohumeral joint. Mild spurring at the glenoid. SOFT TISSUE: Normal. IMPRESSION: Degenerative and postsurgical changes. No acute abnormality. DATA REPOSITORY: RADIATION DOSE DELIVERED:
== END 2025-03-31 17:13 ==
LOC: DI 16:53
PROVIDERS: PCP Student in an Organized Health Care Education/Training Program; Visit Provider Physician Assistant Medical
DX: M25.511 Pain in right shoulder (principal)
CPT/HCPCS: 73030

== ENCOUNTER → 2025-04-14 09:56 | Outpatient (BNVA) | payer MEDICARE, SELFPAY | PROVIDERS: PCP Student in an Organized Health Care Education/Training Program; Referring Provider Student in an Organized Health Care Education/Training Program; Visit Provider Student in an Organized Health Care Education/Training Program | DX: M19.011 Primary osteoarthritis, right shoulder (principal) | CPT/HCPCS: 99213 ==